=== PATIENT | male | born 1970 | race Caucasian/White ===

== ENCOUNTER 2024-02-05 07:32 | Emergency (ER) | payer BC, SELFPAY ==
[2024-02-05 07:36] VITALS: BP 193/123
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
[2024-02-05 08:16] VITALS: BP 165/95
[2024-02-05 08:18] VITALS: BMI 32.5
[2024-02-05 08:19] LABS: ALT (SGPT) 39 U/L (0-50); AST (SGOT) 31 U/L (17-59); Albumin 4.6 g/dl (3.5-5.0); Alkaline Phosphatase 81 U/L (38-126); Blood Urea Nitrogen 13 mg/dl (9-20); Calcium 9.8 mg/dl (8.4-10.2); Carbon Dioxide 26 mmol/L (22-30); Chloride 99 mmol/L (98-107); Glucose 113 mg/dl (70-99); Potassium 3.8 mmol/L (3.5-5.1); Sodium 131 mmol/L (135-145); Total Bilirubin 0.5 mg/dl (0.2-1.3); Total Protein 7.6 g/dl (6.3-8.2); eGFR > 60.00
[2024-02-05 08:20] LABS: % Basophils 0.7 % (0-2); % Eosinophils 2.9 % (0-6); % Immature Granulocytes 0.7 % (0-0.5); % Lymphocytes 25.7 % (20.5-51.1); % Monocytes 8.7 % (1.7-9.3); % Neutrophils 61.3 % (42.2-75.2); Absolute Basophils 0.1 10^3/uL (0-0.2); Absolute Eosinophils 0.4 10^3/uL (0-0.7); Absolute Immature Granulocytes 0.1 10^3/uL (0-0.05); Absolute Lymphocytes 3.5 10^3/uL (1.2-3.4); Absolute Monocytes 1.2 10^3/uL (0.1-0.6); Absolute Neutrophils 8.3 10^3/uL (1.4-6.5); Hematocrit 45.1 % (39.0-52.0); Mean Corp Hgb Conc. 35.5 g/dL (33.0-37.0); Mean Corpuscular Volume 87.4 fL (80.0-94.0); Mean Platelet Volume 9.3 fL (7.4-10.4); Nucleated Red Blood Cells % 0 % (-); Platelet Count 423 10^3/uL (130-400); Red Blood Cell Count 5.16 10^6/uL (4.70-6.10); Red Cell Dist. Width 13.3 % (11.5-14.5); White Blood Cell Count 13.5 10^3/uL (4.8-10.8)
[2024-02-05 08:30] LABS: Troponin I < 0.012 ng/ml
[2024-02-05 09:08] VITALS: BP 155/84
[2024-02-05 10:24] VITALS: BP 153/83
[2024-02-05 10:56] LABS: Troponin I < 0.012 ng/ml
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
[2024-02-05 13:20] VITALS: BP 174/79
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
== END 2024-02-05 15:43 | disposition left against medical advice (07) ==
LOC: EMR 07:32
PROVIDERS: Physician Assistant; CONSULT PHYSICIAN Psychiatry & Neurology Neurology; EMERGENCY PHYSICIAN Emergency Medicine; FAMILY PHYSICIAN Internal Medicine
DX: I16.1 Hypertensive emergency (principal); R51.9 Headache, unspecified; I10 Essential (primary) hypertension; E66.9 Obesity, unspecified; F17.200 Nicotine dependence, unspecified, uncomplicated; R07.89 Other chest pain; Z79.02 Long term (current) use of antithrombotics/antiplatelets; Z79.82 Long term (current) use of aspirin; Z79.899 Other long term (current) drug therapy
CPT/HCPCS: 99284; 70450; 71046; 71275; 74174; 80053; 84484; 85025; 93005; 93306; Q9967